=== PATIENT | female | born 1995 | race Caucasian/White ===

== ENCOUNTER 2018-12-03 16:49 | Emergency (ER) | payer OTHER ==
[~2018-12-03] VITALS: Ht 157.5 cm; Wt 54.4 kg
[~2018-12-03 16:49] MED LIST: ALBU90OI INH; AMOX500 PO; AMOX875 PO; AZIT250 PO; BIRTH CONTROL PO; CEPH500 PO; CODACE30 PO; CODACEE120 PO; CRUTCH2 USE; ESOM20 PO; FAMO20 PO; HYDACE5 PO; IBUP400 PO; IBUP600 PO; NAPR500 PO; Norco 5-325 Ta1 EACH PO; OMEP10ER PO; PENVK500 PO; PROM25 PO; RXCODACESY PO; SILSUL1TC TOP; TRAM50 PO; Vistaril50 MG PO
[2018-12-03] MEDS ORDERED: Bactrim Ds Tab1 EACH PO (17:29)
[2018-12-03] MEDS ORDERED: CEPH500 PO (17:29)
== END 2018-12-03 17:42 | disposition home or self-care (01) ==
LOC: ER 16:49
DX: L02.413 Cutaneous abscess of right upper limb (principal); F17.210 Nicotine dependence, cigarettes, uncomplicated
CPT/HCPCS: 10060; 99282-25

== ENCOUNTER 2019-05-24 22:36 | Observation (INO) | payer OTHER ==
[~2019-05-24] VITALS: Ht 167.6 cm; Wt 54.4 kg
[~2019-05-24 22:36] MED LIST changes: +Bactrim Ds Tab1 EACH PO
[2019-05-24 23:33] LABS: BASOPHILS ABSOLUTE AUTO 0.02 K/mm3 (0.00-0.23); BASOPHILS PERCENT AUTO 0 % (0-2); EOSINOPHILS ABSOLUTE AUTO 0.03 K/mm3 (0.00-0.68); EOSINOPHILS PERCENT AUTO 0 % (0-6); Hemoglobin 11.2 g/dL (11.5-16.0); IMMATURE GRAN ABSOLUTE AUTO 0.05 K/mm3 (0.00-0.10); IMMATURE GRAN PERCENT AUTO 0 % (0-1); LYMPHOCYTES ABSOLUTE AUTO 3.33 K/mm3 (0.84-5.20); LYMPHOCYTES PERCENT AUTO 20 % (21-46); MONOCYTES ABSOLUTE AUTO 1.64 K/mm3 (0.16-1.47); MONOCYTES PERCENT AUTO 10 % (4-13); Mean Corpuscular HGB 26.7 pg (26.0-34.0); Mean Corpuscular Volume 84 fL (80-100); Mean Platelet Volume 10.4 fL (9.1-12.4); NEUTROPHILS ABSOLUTE AUTO 12.01 K/mm3 (1.96-9.15); NEUTROPHILS PERCENT AUTO 70 % (41-73); Platelet Count 299 K/mm3 (150-400); RDW Coefficient Variation 16.5 % (11.7-14.2); RDW Standard Deviation 50.4 fL (35.1-46.3); Red Blood Cell Count 4.19 M/mm3 (3.80-5.20); White Blood Cell Count 17.08 K/mm3 (4.00-11.30)
[2019-05-24 23:54] LABS: Source, Urine Catheter
[2019-05-24 23:59] LABS: Appearance, Urine Clear (Clear); Bilirubin, Urine Neg (Neg); Blood, Urine 1+ (Neg); Color, Urine Amber (P-Yellow); Glucose Qualitative, Urine Neg (Neg); Ketones, Urine 1+ (Neg); Leukocyte Esterase, Urine 1+ (Neg); Nitrite, Urine Neg (Neg); Protein, Urine 2+ (Neg); Specific Gravity, Urine 1.015 (1.003-1.022); Urobilinogen, Urine 1+ (Normal); pH, Urine 6.5 (5.0-8.0)
[2019-05-25 00:04] LABS: Acetaminophen, Random <2.0 ug/mL (10.0-30.0); Alanine Aminotransfer (ALT/SGP 21 U/L (12-78); Alk Phos 78 U/L (50-136); Anion Gap 8 mmol/L (6-16); Aspartate Aminotrans (AST/SGOT 31 U/L (12-37); Bilirubin, Total 1.1 mg/dL (0.1-1.0); Blood Urea Nitrogen 10 mg/dL (8-24); Bun/Creatinine Ratio 11.2 (12.0-20.0); CO2, Blood 25 mmol/L (21-32); CPK Creatine Kinase 539 U/L (26-193); Calcium, Blood 9.4 mg/dL (8.5-10.1); Chloride, Blood 109 mmol/L (98-108); Creatinine, Blood 0.89 mg/dL (0.40-1.00); Ethanol (Alcohol), Blood, Med <3 mg/dL; Globulin, Blood 3.9 g/dL (2.2-4.0); Glomerular Filtration Rate 60 (60-); Potassium, Blood 3.5 mmol/L (3.5-5.5); Salicylate <1.7 mg/dL (2.8-20.0); Sodium, Blood 142 mmol/L (136-145); Total Protein, Blood 7.9 g/dL (6.4-8.2)
[2019-05-25 00:07] LABS: Bacteria Many /hpf; Mucus Mod (0-Heavy); Red Blood Cells, Urine 0-2 /hpf (0-2); Squamous Epithelial Cells Few /hpf (Few)
[2019-05-25 00:10] LABS: U Amphetamine Screen DETECTED; U Barbituate Screen Not Detected; U Benzodiazapine Screen Not Detected; U Buprenorphine Screen Not Detected; U Cannabinoids Screen DETECTED; U Cocaine Screen Not Detected; U Methadone Screen Not Detected; U Methamphetamine Screen DETECTED; U Opiates Screen DETECTED; U Oxycodone Screen Not Detected; U Phencyclidine Screen Not Detected; U Propoxyphene Screen Not Detected
[2019-05-25 00:13] LABS: Glucose, Blood 45 mg/dL (70-99)
[2019-05-25 00:28] LABS: Creatine Kinase MB 5.2 ng/mL (0.0-3.6)
[2019-05-25 05:41] LABS: BASOPHILS ABSOLUTE AUTO 0.02 K/mm3 (0.00-0.23); BASOPHILS PERCENT AUTO 0 % (0-2); EOSINOPHILS ABSOLUTE AUTO 0.09 K/mm3 (0.00-0.68); EOSINOPHILS PERCENT AUTO 1 % (0-6); Hematocrit 30.6 % (33.0-51.0); Hemoglobin 9.6 g/dL (11.5-16.0); IMMATURE GRAN ABSOLUTE AUTO 0.03 K/mm3 (0.00-0.10); IMMATURE GRAN PERCENT AUTO 0 % (0-1); LYMPHOCYTES ABSOLUTE AUTO 3.67 K/mm3 (0.84-5.20); LYMPHOCYTES PERCENT AUTO 33 % (21-46); MONOCYTES PERCENT AUTO 9 % (4-13); Mean Corpuscular HGB 26.7 pg (26.0-34.0); Mean Corpuscular HGB Conc 31.4 g/dL (31.5-36.5); Mean Corpuscular Volume 85 fL (80-100); Mean Platelet Volume 10.9 fL (9.1-12.4); NEUTROPHILS ABSOLUTE AUTO 6.18 K/mm3 (1.96-9.15); NEUTROPHILS PERCENT AUTO 56 % (41-73); Platelet Count 230 K/mm3 (150-400); RDW Coefficient Variation 17.1 % (11.7-14.2); RDW Standard Deviation 53.2 fL (35.1-46.3); Red Blood Cell Count 3.59 M/mm3 (3.80-5.20); White Blood Cell Count 10.99 K/mm3 (4.00-11.30)
[2019-05-25 05:59] LABS: Anion Gap 4 mmol/L (6-16); Blood Urea Nitrogen 9 mg/dL (8-24); Bun/Creatinine Ratio 13.3 (12.0-20.0); CO2, Blood 25 mmol/L (21-32); Calcium, Blood 8.1 mg/dL (8.5-10.1); Chloride, Blood 114 mmol/L (98-108); Creatinine, Blood 0.68 mg/dL (0.40-1.00); Glomerular Filtration Rate >60 (60-); Glucose, Blood 88 mg/dL (70-99); Sodium, Blood 143 mmol/L (136-145)
== END 2019-05-25 19:03 | disposition home or self-care (01) ==
LOC: ER 22:36 → ERHOLD 22:38 → PCU 22:38 → EDBD 05-25 → ERHOLD 05-25 → ER 05-25 → PCU 05-25 04:31 → ERHOLD 05-25 04:31 → PCU 05-25 04:31 → ERHOLD 05-25 14:30 → PCU 05-25 14:30
PROVIDERS: Emergency Medicine; ADMIT Hospitalist
DX: G92 Toxic encephalopathy (principal); E16.1 Other hypoglycemia; E87.6 Hypokalemia; F15.10 Other stimulant abuse, uncomplicated; F11.10 Opioid abuse, uncomplicated; F12.10 Cannabis abuse, uncomplicated
CPT/HCPCS: 36415; 80048; 80053; 81001; 81025; 82550; 82553; 82947; 83735; 84443; 85025; 87086; 93005; 93010; 96361; 96365; 96366; 96372; 96375; 99285-25; G0378; G0480; J1200; J1630; J2060; J3480; J7030; J7042; J7799; P9612

== ENCOUNTER 2019-08-25 18:31 | Emergency (ER) | payer OTHER ==
[~2019-08-25] VITALS: Ht 469.9 cm; Wt 56.7 kg
[2019-08-25] MEDS ORDERED: CEPH500 PO (20:06)
[2019-08-25] MEDS ORDERED: Bactrim Ds Tab1 EACH PO (20:06)
== END 2019-08-25 20:15 | disposition home or self-care (01) ==
LOC: ER 18:31
DX: L02.413 Cutaneous abscess of right upper limb (principal); F17.200 Nicotine dependence, unspecified, uncomplicated
CPT/HCPCS: 10061; 99283-25; A9270-GY

== ENCOUNTER 2019-09-22 12:02 | Emergency (ER) | payer OTHER ==
[~2019-09-22] VITALS: Ht 157.5 cm; Wt 56.7 kg
[2019-09-22] MEDS ORDERED: Monodox100 MG PO (13:49)
== END 2019-09-22 14:03 | disposition home or self-care (01) ==
LOC: ER 12:02
DX: L02.413 Cutaneous abscess of right upper limb (principal); L03.113 Cellulitis of right upper limb; F17.200 Nicotine dependence, unspecified, uncomplicated; Z86.14 Personal history of Methicillin resistant Staphylococcus aureus infection
CPT/HCPCS: 99283

== ENCOUNTER → 2020-06-26 | Outpatient (CLI) | payer OTHER ==
[~2020-06-26] MED LIST changes: +Monodox100 MG PO
[2020-06-26 12:31] LABS: Source, Urine Voided
[2020-06-26 13:37] LABS: Appearance, Urine Turbid (Clear); Bilirubin, Urine Neg (Neg); Blood, Urine Neg (Neg); Color, Urine Yellow (P-Yellow); Glucose Qualitative, Urine Neg (Neg); Ketones, Urine Neg (Neg); Leukocyte Esterase, Urine 1+ (Neg); Nitrite, Urine Neg (Neg); Protein, Urine Neg (Neg); Urobilinogen, Urine NORM (Normal)
[2020-06-26 14:08] LABS: Amorphous Heavy (0-Heavy); Bacteria Few /hpf; Red Blood Cells, Urine Not Seen /hpf (0-2); Squamous Epithelial Cells Few /hpf (Few); White Blood Cells, Urine 0-2 /hpf (0-5)
[2020-06-28 07:09] LABS: CHLAMYDIA TRACHOMATIS, NAA Negative (Negative)
== END | disposition home or self-care (01) ==
LOC: LAB SHORT 12:30 → OLS 12:30
PROVIDERS: Nurse Practitioner Family
DX: R35.0 Frequency of micturition (principal)
CPT/HCPCS: 81001; 87086; 87491; 87591

== ENCOUNTER 2020-12-02 17:22 | Emergency (ER) | payer OTHER ==
[~2020-12-02] VITALS: Ht 157.5 cm; Wt 72.6 kg
[2020-12-02] MEDS ORDERED: BUPRENORPHIN-N1 EAC1 PO (17:30)
[2020-12-02] MEDS ORDERED: Vibramycin100 MG PO (18:00)
== END 2020-12-02 18:05 | disposition home or self-care (01) ==
LOC: ER 17:22
DX: L02.414 Cutaneous abscess of left upper limb (principal); F17.200 Nicotine dependence, unspecified, uncomplicated
CPT/HCPCS: 10160; 99282-25; A9270

== ENCOUNTER 2022-02-07 11:55 | Emergency (ER) | payer OTHER ==
[~2022-02-07] VITALS: Ht 157.5 cm; Wt 72.6 kg
[~2022-02-07 11:55] MED LIST changes: +BUPRENORPHIN-N1 EAC1 PO; +Vibramycin100 MG PO
[2022-02-07] MEDS ORDERED: ERYT.5TO RIGHTEYE (12:16)
== END 2022-02-07 12:15 | disposition home or self-care (01) ==
LOC: ER 11:55
DX: H10.9 Unspecified conjunctivitis (principal); F17.200 Nicotine dependence, unspecified, uncomplicated; Z79.899 Other long term (current) drug therapy
CPT/HCPCS: 99283

== ENCOUNTER → 2022-03-15 | Outpatient (CLI) | payer OTHER ==
[~2022-03-15] MED LIST changes: +ERYT.5TO RIGHTEYE
[2022-03-19 15:11] LABS: HPV 16 Negative (Negative); HPV 18 Negative (Negative); HPV OTHER HR TYPES Negative (Negative)
== END | disposition home or self-care (01) ==
LOC: LAB SHORT 18:13 → LAB 18:13
PROVIDERS: Nurse Practitioner Family
DX: Z11.51 Encounter for screening for human papillomavirus (HPV) (principal)
CPT/HCPCS: 87624; G0123

== ENCOUNTER → 2024-11-29 | Outpatient (CLI) | payer OTHER ==
[2024-12-07 14:08] LABS: HPV HIGH RISK BY TMA Not Detected; HPV SOURCE Cervical
== END ==
LOC: LAB SHORT 15:01 → LAB 15:01
PROVIDERS: Nurse Practitioner Family
DX: Z01.419 Encounter for gynecological examination (general) (routine) without abnormal findings (principal)
CPT/HCPCS: 87624; 88142